=== PATIENT | male | born 1975 | race Caucasian/White ===

== ENCOUNTER 2017-05-16 12:42 | Emergency (ER) | payer BC ==
[2017-05-16 13:04] VITALS: BP 132/70; PULSE 74; RESP 18; TEMP 98.9
[2017-05-16] MEDS ORDERED: predniSONE 20 MG TAB PO STA (13:40)
--- NOTE | 2017-05-16 13:49 | ED ---
General Adult HPI - General Chief complaint: Extremity Problem,Nontraumatic Stated complaint: lt leg pain Time Seen by Provider: 05/16/17 13:12 Source: patient, family, RN notes reviewed Mode of arrival: ambulatory Limitations: no limitations - History of Present Illness Initial comments: Chief complaint history of present illness this is a 41-year-old male here for complaint of left hip area pain. Ongoing for approximately 10 days. 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 He did see an urgent care clinic had x-rays which were reported to be negative. Patient was placed on Motrin. No difficulty urinating or bowel movements. No rash. Pain with active but not with passive range of motion. Patient states it is possible that getting in and out of the truck could have caused the injury or strain to the muscles or tendons. - Related Data Previous Rx's Medication Instructions Recorded methylPREDNISolone Dose Pack 4 mg PO DIRECTED #21 package 05/16/17 [Medrol Dose Pack] Allergies Allergy/AdvReac Type Severity Reaction Status Date / Time No Known Allergies Allergy Verified 05/16/17 13:04 Review of Systems ROS Statement: Those systems with pertinent positive or pertinent negative responses have been documented in the HPI. Review of systems. No headache or visual acuity changes no chest pain shortness breath GI/ problems. No low back pain. No direct injuries. All systems were reviewed past medical problems none. Surgeries left heel fracture subsequent surgery with pins and plate. Family history mother had breast cancer. Patient denies ALLERGIES. Denies smoking. Denies alcohol use. ROS Other: All systems not noted in ROS Statement are negative. Past Medical History Past Medical History: No Reported History History of Any Multi-Drug Resistant Organisms: None Reported Past Surgical History: Orthopedic Surgery Past Psychological History: No Psychological Hx Reported Smoking Status: Never smoker Past Alcohol Use History: None Reported Past Drug Use History: None Reported General Exam - General Exam Comments Initial Comments: General: The patient is awake and alert, no pain with sitting and resting still. When he gets up and walks or tries to get in and out of his high truck he has pain to the left hip area. Vital signs show temperature 98.9 pulse 74 respiratory rate 18 pulse ox 90% room air blood pressure 132/70 Eye: Pupils are equal, extra-ocular movements are intact; there is normal conjunctiva bilaterally. No signs of icterus. Ears, nose, mouth and throat: There are moist mucous membranes Neck: The neck is supple, Cardiovascular: There is a regular rate and rhythm. No murmur, rub or gallop is appreciated. Respiratory: Lungs are clear to auscultation, respirations are non-labored, breath sounds are equal. No wheezes, stridor, rales, or rhonchi. Gastrointestinal: Soft, non-distended, non-tender abdomen without masses or organomegaly noted. There is no rebound or guarding present. No CVA tenderness. Bowel sounds are unremarkable. Back: There is no tenderness to palpation in the midline. There is no obvious deformity. No rashes noted. No complaint of lumbar pain. Musculoskeletal: Patient has area pain around the left hip area. No evidence of any rash. Active range of motion increases pain with abduction and abduction performed by the patient. Significantly less pain with passive testing by the examiner. The patient is able to point pressure over the area of discomfort and decrease discomfort. Neurological: No focal or lateralizing findings. No difficulty urinating or bowel movements. Skin: Skin is warm and dry and no rashes or lesions are noted. Patient advised to watch for a rash family signal shingles. 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 No direct injury. Though he does get in and out of a high truck causing strain getting in and getting out to this area. Discomfort approximately 10 days. Had x-rays done a local urgent care which reported to be negative. The patient was offered re-x-rays he declines. The pain can be controlled by putting pressure over his left hip area. We discussed possibility of tendinitis or muscular skeletal list number. As well as disc disease. But no low back pain and negative leg lift test. Neurovascular status feet intact. No local rash noted. The patient will be advised to take ibuprofen 3 times daily with food. And a Medrol Dosepak. If pain persists a CT or an MRI will be suggested. Patient is requesting off work today and tomorrow. Patient advised to follow-up with family physician does not have one to be advised to follow-up with on-call doctor to the emergency room. Disposition Clinical Impression: Left hip pain, Musculoskeletal strain Disposition: HOME SELF-CARE Condition: Fair Instructions: Musculoskeletal Pain (ED) Additional Instructions: Do gentle range of motion. Ice alternating with heat. Ibuprofen as directed Tylenol as directed. Medrol Dosepak as directed. Follow-up with your family physician if you don't have one follow-up with assigned to Prescriptions: methylPREDNISolone Dose Pack [Medrol Dose Pack] 4 mg PO DIRECTED #21 package Referrals: None,Stated [Primary Care Provider] - 1-2 days Brielle Olson MD [REFERRING] - 1-2 days Time of Disposition: 13:49
--- NOTE | 2017-05-19 08:47 | CDI ---
Documentation Clarification OP Dear Dr. Isai Caldwell Please do addendum to ED report for Musculoskeletal strain location. Thank you, Tahmina Sales Lease Administration Supervisor If you have any questions, please contact Supervisor Packing Room at [phone] [facility]
== END 2017-05-16 14:04 | disposition home or self-care (01) ==
LOC: EC 12:42
DX: S76.012A Strain of muscle, fascia and tendon of left hip, initial encounter (principal); Z53.29 Procedure and treatment not carried out because of patient's decision for other reasons; X50.9XXA Other and unspecified overexertion or strenuous movements or postures, initial encounter
CPT/HCPCS: 99283; J7512

== ENCOUNTER 2017-06-06 15:35 | Emergency (ER) | payer BC ==
[2017-06-06 16:26] VITALS: TEMP 98.9
--- NOTE | 2017-06-06 17:50 | ED ---
General Adult HPI - General Chief complaint: Extremity Injury, Lower Stated complaint: Left Leg Injury Time Seen by Provider: 06/06/17 16:30 Source: patient, RN notes reviewed Mode of arrival: ambulatory Limitations: no limitations - History of Present Illness Initial comments: 41-year-old male presents to the emergency department for a chief complaint of left leg pain times one month. Patient states the pain is in his left hip today but usually travels between the hip and knee. Patient was seen at a clinic for this and told to take Motrin. No imaging was done. Patient denies any pain in his foot ankle or knee. Patient denies any pain in the calf. Patient denies any swelling in the calf. Patient denies any history of blood clots or bleeding disorders. 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 Patient states it is painful to walk on. Patient also admits to some lower back pain that is worse with sitting. Patient denies any shortness of breath or chest pain. Patient has no other complaints at this time. Patient denies abdominal pain nausea vomiting, urinary changes, bowel changes. - Related Data Previous Rx's Medication Instructions Recorded Ibuprofen [Motrin] 600 mg PO Q8HR PRN #20 tab 06/06/17 Allergies Allergy/AdvReac Type Severity Reaction Status Date / Time No Known Allergies Allergy Verified 06/06/17 16:27 Review of Systems ROS Statement: Those systems with pertinent positive or pertinent negative responses have been documented in the HPI. ROS Other: All systems not noted in ROS Statement are negative. Past Medical History Past Medical History: No Reported History History of Any Multi-Drug Resistant Organisms: None Reported Past Surgical History: Orthopedic Surgery Past Psychological History: No Psychological Hx Reported Smoking Status: Never smoker Past Alcohol Use History: None Reported Past Drug Use History: None Reported General Exam Limitations: no limitations General appearance: alert, in no apparent distress Respiratory exam: Present: normal lung sounds bilaterally. Absent: respiratory distress, wheezes, rales, rhonchi, stridor Cardiovascular Exam: Present: regular rate, normal rhythm, normal heart sounds. Absent: systolic murmur, diastolic murmur, rubs, gallop, clicks Extremities exam: Present: normal inspection, full ROM (of the leg lower extremity inlcuding the ankle, knee and hip.), tenderness (mild tenderness to the lateral proximal thigh. No tenderness to the calf or behind the knee. No tenderness to the ankle or foot.), normal capillary refill (Refill less than 2 seconds in the left lower extremity. Pedal pulse 2+ in the left lower extremity.), other (Patient is limping when walking due to the pain in his left proximal leg and hip.). Absent: pedal edema, joint swelling, calf tenderness ( No calf tenderness to palpation. Negative Homans sign. ) Back exam: Present: normal inspection, full ROM. Absent: tenderness, CVA tenderness (R), CVA tenderness (L), muscle spasm, paraspinal tenderness, vertebral tenderness Psychiatric exam: Present: normal affect, normal mood Course Vital Signs 06/06/17 16:22 Temperature 98.9 F Pulse Rate 89 Respiratory 18 Rate Blood Pressure 139/77 O2 Sat by Pulse 98 Oximetry Medical Decision Making - Medical Decision Making 41-year-old male presents to the emergency room for left leg pain times one month. Patient states it is painful to walk on. Patient describes a sharp pain in the low back and upper thigh symptoms extending into the knee. Exam unremarkable except for some mild tenderness in the lateral proximal left leg. X-ray of the left hip and back were negative for acute fractures or dislocations. Ultrasound vascular of the lower extremity was negative for DVT. Patient symptoms are consistent with sciatica. Patient was ready treated with steroids and Motrin 2 weeks ago. I offered another course of steroids which patient declined. He will continue the Motrin. He will follow up with orthopedics in one to 2 days. He will return to the emergency department if he has any worsening symptoms. Disposition Clinical Impression: Left hip pain Disposition: HOME SELF-CARE Condition: Good Instructions: Hip Pain (ED) Additional Instructions: Please take Motrin and Tylenol for pain relief. Please follow-up with orthopedics in one to 2 days. Please return to the emergency department if you have any worsening symptoms. Prescriptions: Ibuprofen [Motrin] 600 mg PO Q8HR PRN #20 tab PRN Reason: Pain Is patient prescribed a controlled substance at d/c from ED?: No Referrals: None,Stated [Primary Care Provider] - 1-2 days Frankie Smith DO [Doctor of Osteopathic Medicine] - 1-2 days Time of Disposition: 18:41
--- NOTE | 2017-06-06 17:53 | XR ---
EXAMINATION TYPE: XR lumbar spine 2 or 3V DATE OF EXAM: 06/06/2017 CLINICAL HISTORY: Low back pain TECHNIQUE: Frontal, lateral, and oblique images of the lumbar spine are obtained. COMPARISON: None FINDINGS: There are 5 lumbar type vertebral bodies identified. The lumbar spine shows satisfactory alignment without evidence of acute fracture or dislocation. Vertebral body heights and disk space he ights are within normal limits. The oblique images appear within normal limits. The overlying soft tissue appears unremarkable. IMPRESSION: No acute fracture or dislocation is seen in the lumbar spine.
--- NOTE | 2017-06-06 17:54 | XR ---
EXAMINATION TYPE: XR Hip Complete LT DATE OF EXAM: 06/06/2017 CLINICAL HISTORY: Left hip pain TECHNIQUE: AP and frogleg views of the left hip are obtained. COMPARISON: None. FINDINGS: There is no acute fracture/dislocation evident in the left hip. The joint space in the le ft hip appears within normal limits. The overlying soft tissue appears unremarkable. IMPRESSION: There is no acute fracture or dislocation in the left hip.
[2017-06-06 18:59] VITALS: BP 138/87; PULSE 77; RESP 16
--- NOTE | 2017-06-08 14:21 | US ---
EXAMINATION TYPE: US venous doppler duplex LE LT DATE OF EXAM: 06/06/2017 5:22 PM COMPARISON: NONE CLINICAL HISTORY: Pain. SIDE PERFORMED: Left TECHNIQUE: The lower extremity deep venous system is examined utilizing real time linear array sonog charli with graded compression, doppler sonography and color-flow sonography. VESSELS IMAGED: External Iliac Vein (EIV) Common Femoral Vein Deep Femoral Vein Greater Saphenous Vein * Femoral Vein Popliteal Vein Small Saphenous Vein * Proximal Calf Veins (* superficial vessels) Limited due to body habitus and pt tolerance. Left Leg: Negative for DVT Grayscale, color doppler, spectral doppler imaging performed of the deep veins of the left lower extr emity. There is normal flow, compressibility, vascular waveforms. IMPRESSION: Slightly suboptimal study without evidence of acute DVT in the left lower extremity on i mages saved.
== END 2017-06-06 19:00 | disposition home or self-care (01) ==
LOC: EC 15:35
DX: M25.552 Pain in left hip (principal); M54.5 Low back pain; M25.562 Pain in left knee; M79.605 Pain in left leg
CPT/HCPCS: 72100; 73502; 99284